=== PATIENT | female | born 1965 | race Caucasian/White ===

== ENCOUNTER → 2017-04-17 | Outpatient (CLI) | payer MEDICAID ==
--- NOTE | ~2017-04-17 | PUL ---
PATIENT'S NAME: [facility] AGE: 51 Y [address] ROOM: [place] [address] LOCATION: [facility] ADMIT DATE: 04/17/2017 Pulmonary DISCHARGE DATE: FAMILY PHYSICIAN: Perez Calderón MD ATTENDING PHYSICIAN: ANNETTE BANUELOS NAME OF PROCEDURE: Pulmonary Function Test DATE OF PROCEDURE: April 17, 2017 TECH: ATripe, STOCK PATCH SAWYER REASON FOR EXAM: COPD RESULTS: 1. Spirometry demonstrates severe airflow obstruction. There is no significant improvement post bronchodilator. 2. Lung volumes demonstrate air trapping. Diffusing capacity is severely reduced. WOOD YING MD OCT/ /[id number] dtt: 05/08/17 0826 , Wood Ying dtd: 04/19/17 0911
== END | disposition disaster alternative care site (69) ==
LOC: GRTH 04-04 09:00
DX: J44.9 Chronic obstructive pulmonary disease, unspecified (principal); J98.8 Other specified respiratory disorders